=== PATIENT | female | born 1940 | race Caucasian/White ===

== ENCOUNTER 2017-01-02 13:24 | Outpatient (CLI) | payer MEDICARE, OTHER ==
[~2017-01-02] VITALS: Ht 160 cm; Wt 59.1 kg
[2017-01-02] MEDS ORDERED: CALTRATE 600 M600 M1 PO (14:09)
[2017-01-02] MEDS ORDERED: ALENDRONATE SOD70 MG PO (14:09)
[2017-01-02 14:13] VITALS: BP 128/70; Ht 160 cm; Wt 59.1 kg
== END 2017-01-02 14:29 ==
LOC: D.OPS 13:24
DX: M81.0 Age-related osteoporosis without current pathological fracture (principal)

== ENCOUNTER 2017-07-10 09:52 | Outpatient (CLI) | payer MEDICARE, OTHER ==
[~2017-07-10 09:52] MED LIST: ALENDRONATE SOD70 MG PO; CALTRATE 600 M600 M1 PO
[2017-07-10 10:50] VITALS: BP 159/84; BMI 23.9
== END 2017-07-10 10:55 | disposition home or self-care (01) ==
LOC: D.OPS 09:52
DX: M81.0 Age-related osteoporosis without current pathological fracture (principal)

== ENCOUNTER 2018-01-08 10:03 | Outpatient (CLI) | payer MEDICARE, OTHER ==
[~2018-01-08] VITALS: Ht 160 cm; Wt 66.8 kg
[2018-01-08 10:32] VITALS: BP 129/68; Ht 160 cm; Wt 66.8 kg
== END 2018-01-08 11:05 | disposition home or self-care (01) ==
LOC: D.OPS 10:03
DX: M81.0 Age-related osteoporosis without current pathological fracture (principal)

== ENCOUNTER 2018-07-16 11:28 | Outpatient (CLI) | payer MEDICARE, OTHER ==
[~2018-07-16] VITALS: Ht 160 cm; Wt 59.1 kg
[2018-07-16 12:44] VITALS: BP 131/65; Ht 160 cm; Wt 59.1 kg
== END 2018-07-16 12:49 | disposition home or self-care (01) ==
LOC: D.OPS 11:28
DX: M81.0 Age-related osteoporosis without current pathological fracture (principal); Z01.812 Encounter for preprocedural laboratory examination

== ENCOUNTER 2019-01-12 07:15 | Inpatient (IN) | payer MEDICARE, OTHER ==
--- NOTE | ~2019-01-12 | HEMODYNAMI ---
PATIENT:ZULMA MIRANDA MEDICAL RECORD: [id number] : 40 [facility] [id number] ADMISSION DATE: 01/12/19 Generatedon:01/13/20197:51 Patient name: ZULMA MIRANDA Patient #: [id number] SSN: : 1940 Date of study: 01/13/2019 Page: Of Hemodynamic Procedure Report Patient Data Patient Demographics Procedure consent was obtained First Name: ZULMA Gender: Female Last Name: RUTH : 1940 [facility] Initial: Marcelle Age: 78 year(s) Patient #: [id number] Race: Unknown Additional ID: [id number] Contact details [address]: [address] [place] [address] State: [place] City: [place] Zip code: [address] Past Medical History Allergies: No known allergies Admission Admission Data Admission Date: 01/12/2019 Admission Time: 8:51 Room #: D.2120 Height (in.): 62.99 BSA: 1.61 (m2) Height (cm.): 160 BMI: 23.05 (kg/m2) Weight (lbs.): 130.07 Weight (kg.): 59 Lab Results Lab Result Date: 01/13/2019 Lab Result Time: 0:00 Biochemistry Name Units Result Min Max BUN mg/dl 16 --(---*)-- 7 18 Creatinine mg/dl 1 --(--*-)-- 0.6 1.3 CBC Name Units Result Min Max Hemoglobin g/dl 14 --(*---)-- 13.5 17.5 Procedure Procedure Types Cath Procedure Diagnostic Procedure C [facility] w/Coronaries Sedation Charges Moderate Sedation up to 15 minutes PCI Procedure Coronary Stent Coronary Stent Initial Procedure Description Procedure Date Procedure Date: 01/13/2019 Procedure Start Time: 7:20 Procedure End Time: 7:49 Procedure Staff Name Function Rigoberto Munson MD Performing Physician Padmini Parsons RT Scrub Christopher Snow RT Monitor Kiera López RN Nurse Sameera Honeycutt RT Monitor Procedure Data Cath Procedure Fluoroscopy Diagnostic fluoroscopy Total fluoroscopy Time: 6.8 time: 6.8 min min Diagnostic fluoroscopy Total fluoroscopy dose: 502 dose: 502 mGy mGy Contrast Material Contrast Material Type Amount (ml) Isovue 300 94 Entry Location Entry Primary Successful Side Size Upsize Upsize Entry Closure Succes sful Closure Location (Fr) 1 (Fr) 2 (Fr) Remarks Device Remarks Femoral Right 5 Fr 6 Fr Exoseal artery Short Estimated blood loss: 5 ml Diagnostic catheters Device Type Used For End Catheter Placement MULTIPACK JL 4.0 5Fr Left Coronary catheter Angiography MULTIPACK 3DRC 5Fr Right Coronary catheter Angiography MULTIPACK Pigtail 5 Fr LV Angiography catheter Procedure Complications No complications Procedure Medications Medication Administration Route Dosage 0.9% NaCl I.V. 100 ml/hr Oxygen etCO2 Nasal cannula 2 l/min Lidocaine 2% added to field 20 Heparin Flush Bag added to field 2 bags (1000units/500ml NS) Versed I.V. 2 mg Fentanyl I.V. 50 mcg Fentanyl I.V. 50 mcg Heparin Bolus I.V. 6000 units Plavix P.O. 600 mg Hemodynamics Rest BSA: 1.61 (m2) HGB: 14 (g/dl) O2 Consumption: Estimated: 148.46 (ml/min) O2 Cons umption indexed: Estimated:92.21 (ml/min/m) Heart Rate: 75 (bpm) Pressure Samples Time Site Value (mmHg) Purpose Heart Use Rate(bpm) 7:26 LV 113/-6,1 Snapshot 68 7:27 LV 104/-4,4 Pullback 66 7:27 AO 109/53(74) Pullback 66 Gradients Valve Time Site 1 Site 2 Mean SEP/DFP Peak To Heart Use (mmHg) (sec/min) Peak Rate (mmHg) (bpm) Aortic 7:27 LV AO 0 6 0 66 104/-4,4 109/53(74) Calculations Valve P-P Mean Valve Index Valve Source Name Gradient Area Flow (cm2) Aortic 0 0 0 0 Snapshots Pre Cath Intra NCS Post Cath Vital Signs Time Heart Resp SPO2 etCO2 NIBP (mmHg) Rhythm Pain Sedation Rate (ipm) (%) (mmHg) Status Level (bpm) 7:14:05 76 21 100 33.6 119/70(95) NSR 0 (11) 10(A) , No pain 7:18:28 81 21 97 32.9 75/47(64) NSR 0 (11) 10(A) , No pain 7:22:35 65 15 98 17.2 112/60(85) NSR 0 (11) 10(A) , No pain 7:26:54 69 15 98 27.6 118/60(85) NSR 0 (11) 9(A) , No pain 7:31:12 70 17 98 29.1 103/58(85) NSR 0 (11) 9(A) , No pain 7:35:26 67 13 98 32.1 116/60(80) NSR 0 (11) 9(A) , No pain 7:39:42 69 14 99 32.2 114/70(85) NSR 0 (11) 9(A) , No pain 7:44:00 68 14 100 33.6 129/67(97) NSR 0 (11) 9(A) , No pain 7:48:18 67 17 100 34.4 130/74(109) NSR 0 (11) 10(A) , No pain Medications Time Medication Route Dose Verified Delivered Reason Notes Effectiveness by by 7:13:07 0.9% NaCl I.V. 100 Rigoberto Kiera used for ml/hr Arpit López finish patcher 7:13:13 Oxygen etCO2 2 Rigoberto Kiera used for Nasal l/min Arpit López procedure cannula RN 7:13:18 Lidocaine 2% added 20ml Rigoberto Rigoberto for local to vial Arpit Munson MD anesthetic field 7:13:23 Heparin Flush added 2 Rigoberto Rigoberto used for Bag to bags Arpit Munson MD procedure (1000units/500ml field NS) 7:19:08 Versed I.V. 2 mg Rigoberto Kiera for sedation Arpit López RN 7:19:18 Fentanyl I.V. 50 Rigoberto Kiera for sedation mcg Arpit López RN 7:24:28 Fentanyl I.V. 50 Rigoberto Kiera for sedation mcg Arpit López RN 7:32:22 Heparin Bolus I.V. 6000 Rigoberto Kiera for verifi ed units Arpit López anticoagulation with Dr. PAMELA Munson 7:47:33 Plavix P.O. 600 Rigoberto Kiera for mg Arpit López antiplatelet RN therapy Procedure Log Time Note 6:52:34 Signed procedure consent form obtained from patient. 6:52:35 Time tracking: Regular hours (M-F 7:00 - 5:00) 6:52:39 Plan of Care:Hemodynamics will remain stable., Cardiac rhythm will remain stable., Comfort level will be maintained., Respiratory function will remain adequate., Patient/ family verbilizes understanding of procedure., Procedure tolerated without complication., Recovers from procedure without complications.. 6:53:32 Diagnostic Cath status Urgent 6:53:43 Patient Weight : 130.07 lbs 6:53:52 Patient Height : 62.99 inches 6:56:19 Kiera López RN sent for patient. Start room use. 7:02:47 Patient received from PCU to CCL 1 Alert and oriented. Tansferred to table in Supine position. 7:02:48 Correct patient and procedure confirmed by team. 7:02:48 Warm blankets applied, and hardeep hugger turned on for patient comfort. 7:02:49 ECG and BP/O2 sat monitors applied to patient. 7:12:54 Vital chart was started 7:12:55 Baseline sample Acquired. 7:12:58 Rhythm: sinus rhythm 7:13:00 Full Disclosure recording started 7:13:07 0.9% NaCl 100 ml/hr I.V. was administered by Kiera López RN; used for procedure; 7:13:13 Oxygen 2 l/min etCO2 Nasal cannula was administered by Kiera López RN; used for procedure; 7:13:18 Lidocaine 2% 20ml vial added to field was administered by Rigoberto Munson MD; for local anesthetic; 7:13:23 Heparin Flush Bag (1000units/500ml NS) 2 bags added to field was administered by Rigoberto Munson MD; used for procedure; 7:15:16 H&P Date Dictated: 01/12/2019 Within 30 days and on chart.. 7:15:18 Pre-op teaching completed and patient verbalized understanding. 7:15:18 Pre-procedure instructions explained to patient. 7:15:20 Family in waiting room. 7:15:22 Patient NPO since Midnight. 7:15:29 Patient allergic to No known allergies 7:15:32 Is the patient allergic to Iodine/contrast media? No. 7:15:38 Is patient on blood thinner?No 7:15:40 Patient diabetic? No. 7:15:42 ----Pre-sedation anethsthesia assessment.---- 7:15:52 Previous problem with sedation/anesthesia? No ? 7:15:53 Snore? No 7:15:54 Sleep apnea? No 7:15:56 Deviated septum? No 7:16:01 Opens mouth fully? Yes 7:16:03 Sticks out tongue? Yes 7:16:07 Airway obstruction? No ? 7:16:09 Dentures? No ? 7:16:12 Pre procedure: right dorsailis pedis pulse 1+ Palpable, but thready & weak; easily obliterated 7:16:16 Modified Lefty's test Ulnar > 7 seconds. 7:16:18 Patient pain scale 0/10 ?. 7:16:25 IV patent on arrival in right antecubital with 0.9% NaCl at KVO. 7:17:13 Lab Result : Hemoglobin 14 g/dl 7:17:13 Lab Result : Creatinine 1 mg/dl 7:17:13 Lab Result : BUN 16 mg/dl 7:17:18 Lab results completed and on chart. 7:17:20 Right groin area was prepped with chlora-prep and draped in sterile fashion 7:17:21 Alarms reviewed by R. N. 7:17:22 Sharps counted by scrub and verified by R.N. 7:18:56 --------ALL STOP TIME OUT------ 7:18:56 Physician arrived 7:18:57 Final Timeout: patient, procedure, and site verified with staff and physician. All members of the team are in agreement. 7:19:03 Right groin site verified by team. 7:19:07 Maximum allowable Isovue 300 dose 300ml. Physician notified. (300ml for normal creatinines. For patients with creatinine of 1.7 or higher multiply weight(kg) x 5 divided by creatinine.) 7:19:08 Versed 2 mg I.V. was administered by Kiera López RN; for sedation; 7:19:11 Fire Safety Assessment: A--An alcohol-based skin anteseptic being used preoperatively., C--Open oxygen or nitrous oxide is being used., D--An ESU, laser, or fiber-optic light is being used. 7:19:15 Physical assessment completed. ASA score P 2 - A patient with mild systemic disease as per Rigoberto Munson MD. 7:19:18 Fentanyl 50 mcg I.V. was administered by Kiera López RN; for sedation; 7:19:28 Sedation plan: IV Moderate Sedation Medication:Versed, Fentanyl 7:19:41 Use device set Femoral Dx 7:19:42 Medline Cath Pack ([id number]) opened to sterile field. 7:19:42 Bag Decanter (2002S) opened to sterile field. 7:19:42 ACIST Syringe (41990) opened to sterile field. 7:19:43 DIAGNOSTIC WIRE .035 260cm J wire (339817) opened to sterile field. 7:19:46 ACIST Hand Control (92531) opened to sterile field. 7:19:47 DIAGNOSTIC Multipack 5Fr catheter set (PC9118) opened to sterile field. 7:19:47 ACIST Manifold (72279) opened to sterile field. 7:19:48 Tegaderm 4 x 4 (1626W) opened to sterile field. 7:19:49 SHEATH 5FR Hobbs (DML848) opened to sterile field. 7:19:56 Procedure started. 7:20:02 Local anesthetic to right femoral artery with Lidocaine 2% by Padmini Parsons RT(R).INITIAL ACCESS ONLY 7:20:12 A 5 Fr sheath was inserted into the Right Femoral artery 7:21:16 A MULTIPACK JL 4.0 5Fr catheter was advanced over the wire and used for Left Coronary Angiography. 7:21:19 LCA angiography performed. 7:21:22 Injector settings: Ml/sec: 3, Volume: 6, 7:23:10 Catheter removed. 7:24:28 Fentanyl 50 mcg I.V. was administered by Kiera López RN; for sedation; 7:24:28 A MULTIPACK 3DRC 5Fr catheter was advanced over the wire and used for Right Coronary Angiography. 7:24:32 RCA angiography performed. 7:24:35 Injector settings: Ml/sec: 3, Volume: 6, 7:25:03 Catheter removed. 7:25:10 A MULTIPACK Pigtail 5 Fr catheter was advanced over the wire and used for LV Angiography. 7:25:46 SHEATH 6FR Hobbs (VPX950) opened to sterile field. 7:25:47 BMW 300cm [place] 2 J wire ([id number]) opened to sterile field. 7::47 INFLATOR Merit BasixCompak (SS8039) opened to sterile field. 7:25:53 GUIDE 6FR XBLAD 3.5 catheter ([id number]) opened to sterile field. 7::42 LV hemodynamics recorded. 7::44 LV gram done using BANKS 7::46 Injector settings: Ml/sec: 5, Volume: 15, 7:27:10 EF : 35 % 7:29:25 Catheter removed. 7:29:27 Proceeding to intervention. 7::37 Sheath upsized to a 6 Fr Short. 7::44 6 Fr xblad 3.5 guide catheter was inserted over the wire 7:29:50 bmw wire advanced. 7:32:22 Heparin Bolus 6000 units I.V. was administered by Kiera López RN; for anticoagulation; verified with Dr. Munson 7:35:31 Wire advanced across lesion. 7:37:58 Inflate balloon Inflation number: 1 A EMERGE OTW 2.0 x 20 balloon ([id number]) was prepped and advanced across the Prox LAD, then inflated to 11 ARON for 0:10 (min:sec). 7:39:34 Balloon removed over the wire. 7:44:52 Place stent Inflation Number: 2 A INTEGRITY OTW 2.5 X 26 stent ([id number]) was prepped and advanced across the Prox LAD. The stent was deployed at 10 ARON for 0:10 (min:sec). 7:45:49 Stent catheter was removed intact over wire. 7:45:50 Wire removed. 7:45:51 Guide catheter removed. 7:46:00 EXOSEAL 6Fr (EX600) opened to sterile field. 7:46:11 Sheath removed intact; hemostasis achieved with Exoseal to the Right Femoral artery. 7:46:13 Procedure ended.(Physican Out) 7:46:26 Fluoroscopy time 06.80 minutes. 7:46:30 Fluoroscopy dose: 502 mGy 7:46:30 Flurop Dose total: 502 7:46:37 Contrast amount:Isovue 300 94ml. 7:46:39 Sharps counted by scrub and verified by R.N. 7:46:40 Insertion/operative site no bleeding no hematoma. 7:46:43 Post-op/insertion site Right Femoral artery dressed using a 4 x 4 and Tegaderm. 7:46:52 Post right femoral artery:stable 7:46:54 Post Procedure Pulses reassessed and unchanged 7:46:57 Post procedure rhythm: unchanged. 7:47:00 Estimated blood loss: 5 ml 7:47:29 Post procedure instruction explained to patient.Patient verbalizes understanding. 7:47:30 Patient needs reinforcement of post procedure teaching. 7:47:33 Plavix 600 mg P.O. was administered by Kiera López RN; for antiplatelet therapy; 7:48:51 Procedure type changed to Cath procedure, Diagnostic procedure, LHC, LHC w/Coronaries, Sedation Charges, Moderate Sedation up to 15 minutes, PCI procedure, Coronary Stent, Coronary Stent Initial 7:48:54 Procedure and supply charges have been captured, reviewed, submitted and are correct. 7:48:58 Procedure Complication : No complications 7:49:00 Vital chart was stopped 7:49:01 See physician's report for complete and final results. 7:49:14 Report given to [facility]. 7:49:17 Patient transfered to [facility] with Stretcher. 7:49:18 Full Disclosure recording stopped 7:49:18 Procedure ended. 7:49:27 ACC-PCI Only Patient was given prescriptions, or instructed by Rigoberto Munson MD to start/continue the following medications upon discharge: Plavix 7:49:29 End room use (Document Last) Intervention Summary Intervention Notes Time ActionType Lesion and Equipment Action# Pressure Duration Attributes Used 7:37:58 Inflate Prox LAD EMERGE OTW 1 11 00:10 balloon 2.0 x 20 balloon ([id number]) 7:44:52 Place stent Prox LAD INTEGRITY 2 10 00:10 OTW 2.5 X 26 stent ([id number]) Device Usage Item Name Manufacture Quantity Catalog Number Hospital Part Current Min imal Lot# / Charge Number Stock Stock Serial# Code ACIST Acist 1 02007 441324 819160 857315 20 Syringe Medical (34588) Systems Inc Bag Decanter Microtek 1 242771 61352 671017 5 () Medical Inc. Medline Cath Medline 1 [id number] 731084 04068 159783 5 Pack ([id number]) DIAGNOSTIC [facility] [place] 1 061723 870205 114782 185582 30 WIRE .035 260cm J wire (358409) ACIST Hand Acist 1 22592 039656 366020 791907 5 Control Medical (89611) Systems Inc ACIST Acist 1 52243 453954 185333 402363 5 Manifold Medical (72545) Systems Inc DIAGNOSTIC Cardinal 1 DC5792 058095 21351 784767 30 Multipack Health 5Fr catheter set (SQ9617) Tegaderm 4 x 3M 1 1626W 356851 065974 119106 5 4 (1626W) SHEATH 5FR Terumo 1 EFW506 691227 462941 627700 5 Hobbs (OLJ332) MULTIPACK JL Cardinal 1 089538 5 4.0 5Fr Health catheter MULTIPACK Cardinal 1 275200 5 3DRC 5Fr Health catheter MULTIPACK Cardinal 1 480592 5 Pigtail 5 Fr Health catheter SHEATH 6FR Terumo 1 SGZ098 914359 950862 267070 40 Hobbs (CDK972) INFLATOR Merit 1 KB1223 091771 445321 966118 15 [facility] BasixCompak (IM4509) BMW 300cm Ivory 1 [id number] 608320 519520 884819 5 [place] 2 Vascular J wire ([id number]) GUIDE 6FR Cardinal 1 [id number] 668803 921700 714653 10 XBLAD 3.5 Health catheter (21498029) EMERGE OTW [place] 1 [id number] 256758 496258 305124 5 [id number] 2.0 x 20 Scientific balloon ([id number]) INTEGRITY Medtronic 1 [id number] 571341 222911 950121 2 [id number] OTW 2.5 X 26 stent ([id number]) EXOSEAL 6Fr Cardinal 1 EX600 609045 966981 023093 10 (EX600) Health Signature Audit [place] Stage Time Signature Unsigned Intra-Procedure 01/13/2019 Sameera Honeycutt 7:51:49 AM RT(R) Signatures Monitor : Christopher Snow RT Signature : Date : Time : Monitor : Sameera Yinka RT Signature : Date : Time : [place] [address] [place] [address]
[2019-01-12 07:40] LABS: BASOPHILS 0.2 % (0-2); EOSINOPHILS 1.3 % (0-7); HEMATOCRIT 41.5 % (36.0-48.0); IMMATURE GRANULOCYTES 0.1 % (0-5); LYMPHOCYTES 11.8 % (15-50); MCH 31.9 pg (26.0-34.0); MCHC 33.7 g/dL (31.0-37.0); MCV 94.5 fL (80.0-100.0); MEAN PLATELET VOLUME 10.7 fL (7.4-10.4); MONOCYTES 3.2 % (2-11); NEUTROPHILS 83.4 % (40-80); PLATELET COUNT 205 10x3/uL (130-400); RBC 4.39 10x6/uL (4.00-5.40); RDW 13.3 % (11.5-14.5); WBC 9.3 10x3/uL (4.8-10.8)
[2019-01-12 07:51] LABS: APTT 24.7 SECONDS (22.8-39.4); INR 0.95 (0.85-1.17); PROTIME 12.2 SECONDS (11.6-15.0)
[2019-01-12 07:58] VITALS: BP 136/80
[2019-01-12 07:59] LABS: ALBUMIN 3.8 g/dL (3.4-5.0); ALKALINE PHOSPHATASE 49 U/L (46-116); ALT (SGPT) 29 U/L (10-68); BILIRUBIN - TOTAL 0.36 mg/dL (0.2-1.3); CALC OSMOLALITY 280 mosm/kg (275-300); CALCIUM 9.5 mg/dL (8.5-10.1); CHLORIDE - SERUM 103 mmol/L (98-107); GLUCOSE 128 mg/dL (74-106); POTASSIUM - SERUM 3.9 mmol/L (3.5-5.1); PROTEIN - SERUM 7.3 g/dL (6.4-8.2); SODIUM 139 mmol/L (136-145); UREA NITROGEN 16 mg/dL (7-18); eGFR NON AFRICAN AMERICAN 57 mL/min (90-120)
[2019-01-12 08:13] LABS: CKMB 2.4 U/L (0.0-3.6); CREATINE KINASE 62 UL (21-215); MAGNESIUM - SERUM 1.9 mg/dL (1.8-2.4)
[2019-01-12 08:25] VITALS: BP 135/84
--- NOTE | 2019-01-12 08:25 | NUR ---
REPORTS FROM LAB. ELEVATED TROP 0.240. DR MOLINA NOTIFIED
[2019-01-12 09:39] LABS: ANION GAP 12.3 mmol/L (8-16); CALCIUM 9.4 mg/dL (8.5-10.1); CARBON DIOXIDE 27.8 mmol/L (21.0-32.0); POTASSIUM - SERUM 4.1 mmol/L (3.5-5.1)
--- NOTE | 2019-01-12 09:47 | NUR ---
PT ARRIVED FROM ER ALERT AND ORIENTED X4 BY WHEELCHAIR. PT VITALS STABLE AND COMPLAINS OF NO PAIN AT THIS TIME. PT EXPRESSES MILD ANXIETY FROM BEING IN HOSPITAL. PT STATES, "I HAVN'T BEEN IN THE HOSPITAL SINCE MY CHILDREN WERE BORN." BED LOW CALL LIGHT WITHIN REACH. WILL CONTINUE TO MONITOR.
[2019-01-12] MEDS ORDERED: PROLIA INJ 660 MG/M1 IJ (10:03)
[2019-01-12 10:43] VITALS: BP 119/69
[2019-01-12 12:07] VITALS: BP 119/69; BMI 23.0
[2019-01-12 12:22] LABS: CKMB 38.7 U/L (0.0-3.6)
[2019-01-12 12:23] LABS: CREATINE KINASE 285 UL (21-215); TROPONIN-I 5.282 ng/mL (0.000-0.060)
--- NOTE | 2019-01-12 12:58 | NUR ---
PAGED DR. HELTON CONCERNING PT TRIPONIN. ORDERED ANOTHER DOSE OF LOVANOX. VITALS STABLE WILL CONTINUE TO MONITOR.
[2019-01-12 19:04] LABS: CKMB 86.5 U/L (0.0-3.6); CREATINE KINASE 598 UL (21-215)
[2019-01-12 19:07] LABS: TROPONIN-I 18.553 ng/mL (0.000-0.060)
[2019-01-12 20:07] VITALS: BP 148/79
--- NOTE | 2019-01-12 20:31 | NUR ---
REPORT RECIEVED AND INITIAL ROUNDS RECIEVED. LAB CALLED ELEVATED CRITICAL TROPONIN OF 18.5. PT ALERT/ORIENTED AND RESTING IN BED. 66/SR WITH PACS. STATES SMALL AMOUNT OF CHEST TIGHTNESS. NITRO PASTE IN PLACE TO CHEST WALL. STARTED O2 @ 2L/NC. MONITOR AND CPOC. PAGE TO DR HELTON AND REPORTED CRITICAL TROPONIN INCREASE. ORDERS TO CONTINUE TO MONITOR AND MOVE HER TO 1ST FOR HEART CATH IN AM.
[2019-01-12 23:49] VITALS: BP 124/81
[2019-01-13 03:00] LABS: CKMB 30.1 U/L (0.0-3.6); CREATINE KINASE 58 UL (21-215)
[2019-01-13 03:02] LABS: TROPONIN-I 3.601 ng/mL (0.000-0.060)
[2019-01-13 04:23] VITALS: BP 128/76
--- NOTE | 2019-01-13 08:08 | NUR ---
BACK FROM PEDIATRIC PATHOLOGIST. V/S STABLE.RIGHT GROIN SOFT WITH DRSG DRY AND INTACT.RIGHT AC WITH NS AT 100. PPP. TELEMERTY SHOWS SR64
--- NOTE | 2019-01-13 10:05 | NUR ---
PT LYING QUIETLY WITH EYES CLOSED. V/S STABLE. RIGHT GROIN SOFT WITH DRSG DRY AND INTACT. PPP. TELEMERTY SHOWS SR. FAMILY AT BEDSIDE
[2019-01-13 11:57] VITALS: BP 104/59
--- NOTE | 2019-01-13 12:24 | NUR ---
PRE OPED FOR CATH. PT REFUSES TO TAKE OFF JEWERLY UNTILL SON GETS HERE
--- NOTE | 2019-01-13 12:40 | NUR ---
PT UP TO BATHROOM. CATH SITE SOFT WITH DRSG DRY AND INTACT . WILL MONITOR
--- NOTE | 2019-01-13 12:43 | NUR ---
I have reviewed this patient and I concur with the Shift Assessment completed by the Licensed Practical Nurse today this shift.
[2019-01-13 15:44] VITALS: BP 106/61
--- NOTE | 2019-01-13 18:10 | NUR ---
LYING QUIETLY WITH EYES CLOSED. TELEMERTY SHOWS SR. DRSG TO GROING DRY AND INNTACT. GROIN SOFT
--- NOTE | 2019-01-13 19:26 | NUR ---
ASSESSMENT COMPLETE, PT A&O. RESPERATIONS EVEN ON RA. DRSG TO RIGHT GROIN C/D/I. NO SWELLING, BLEEDING OR HEMATOMA NOTED. RIGHT LEG WARM TO TOUCH, PEDAL PULSES PRESENT. PT DENIES PAIN OR NEEDS, BED LOW, CL IN REACH.
--- NOTE | 2019-01-13 20:18 | NUR ---
IV TO RIGHT AC SWOLLEN. IV CATH REMOVED AT PT REQUEST, TIP INTACT. COVERED WITH 2X2 AND TAPE. PT DENIES ANY NEEDS, BED LOW, CL IN REACH.
[2019-01-13 21:25] VITALS: BP 107/59
[2019-01-14 01:56] VITALS: BP 116/63
--- NOTE | 2019-01-14 05:03 | NUR ---
I have reviewed this patient and I concur with the Shift Assessment completed by the Licensed Practical Nurse today this shift.
[2019-01-14 06:23] VITALS: BP 115/66
--- NOTE | 2019-01-14 07:15 | NUR ---
ASSESSMENT COMPLETED. ALERT AND ORIENTED. TELEMERTY SHOWS SR 74. RIGHT GROIN SOFT WITH DRSG DRY AND INTACT.UP AB THU. DENIES ANY NEEDS. SR UP WITH CALL LIGHT IN REACH
[2019-01-14 08:00] VITALS: BP 116/46
[2019-01-14 12:00] VITALS: BP 104/69
--- NOTE | 2019-01-14 13:19 | NUR ---
I have reviewed this patient and I concur with the Shift Assessment completed by the Licensed Practical Nurse today this shift.
[2019-01-14] MEDS ORDERED: COREG 3.1253.125 MG PO (16:28)
[2019-01-14] MEDS ORDERED: PLAVIX75 MG PO (16:28)
[2019-01-14] MEDS ORDERED: ASPIRIN81 MG PO (16:29)
[2019-01-14 16:37] VITALS: BP 119/52
--- NOTE | 2019-01-14 16:40 | NUR ---
PER PATIENT REQUEST I CALLED [facility] BY KEN NARANJO. COREG3.125 MG #60 TAKE ONE TWICE DAILY WITH MEALS WITH 6 REFILLS AND PLAVIX 75 MG #30 WITH 1 REFILL ALONG WITH 81 MG ASA #30 WITH 6 REFILLS.
--- NOTE | 2019-01-14 17:10 | MORECARE ---
CASE MANAGEMENT DISCHARGE SUMMARY PATIENT: ZULMA MIRANDA UNIT: [id number] ADM DATE: 01/13/19 AGE: 78 : 40 SEX: F ROOM/BED: D.1629 AUTHOR: CATARINO,DOC PHYSICIAN: REFERRING PHYSICIAN: OLLIE HELTON M.D. DATE OF SERVICE: 01/14/19 Discharge Plan Patient Name: ZULMA MIRANDA Facility: [facility]:[place] : 1940 Planned Disposition: Home Anticipated Discharge Date: 01/14/19 Discharge Date: Expected LOS: 1 Initial Reviewer: [email or web address] Initial Review Date: 01/14/2019 Generated: 01/14/19 6:10 pm Comments DCP- Discharge Planning Updated by [email or web address]: William Figueroa on 01/14/19 4:[address] Patient Name: ZULMA MIRANDA Admission Status: ER Accout number: [id number] Admission Date: 01-13-2019 : 1940 Admission Diagnosis: Attending: OLLIE HELTON Current LOS: 1 Anticipated DC Date: 01-14-2019 Planned Disposition: Home Primary Insurance: MEDICARE A & B Discharge Planning Comments: CM MET WITH PT IN ROOM TO DISCUSS DISCHARGE PLANNING AND NEEDS. PT REPORTS LIVING AT HOME INDEPENDENTLY WITH SPOUSE. PT HAS NO MEDICAL EQUIPMENT AND NO OUTSIDE SERVICES ASSISTING IN THE HOME. CM DISCUSSED AVAILABILITY OF HOME HEALTH, REHAB SERVICES AND MEDICAL EQUIPMENT. PT DENIES DISCHARGE NEEDS, REPORTS HER SPOUSE IS HERE TO PICK HER UP FOR DISCHARGE HOME. FLOW COODINATOR NURSE NOTIFIED. Crop Nutrition Scientist: William Figueroa DCPIA - Discharge Planning Initial Assessment Updated by [email or web address]: William Figueroa on 01/14/19 5:04 pm * Is the patient Alert and Oriented? Yes * How many steps to enter\exit or inside your home? NONE * PCP DR. COLEMAN * Pharmacy [facility] * Preadmission Environment Home with Family * ADLs Independent * Equipment None * Other Equipment NO MEDICAL EQUIPMENT PROVIDER PREFERENCE * List name and contact numbers for known caregivers / representatives who currently or will assist patient after discharge: PEPE MIRANDA, SPOUSE, * Verbal permission to speak to the caregivers and representatives has been obtained from the patient. Yes * Community resources currently utilized None * Please name any agencies selected above. NONE * Additional services required to return to the preadmission environment? No * Can the patient safely return to the preadmission environment? Yes * Has this patient been hospitalized within the prior 30 days at any hospital? No Patient Name: ZULMA MIRANDA Page [phone] at 1710 All edits/amendments must be made on the electronic document DICTATION DATE: 01/14/191709 MOPHEAD SEWER: JESSICA 01/14/191709 RPT#: [id number] DC DATE: STATUS: ADM IN [facility] [address] [place] [address] END OF REPORT
--- NOTE | 2019-01-14 18:00 | NUR ---
PT DCD. IV DCD WITH TIP INTACT. TO PRIVATE CAR PER WHEEL CHAIR
== END 2019-01-14 18:03 | disposition home or self-care (01) | DRG 249 ==
LOC: D.ER 07:15 → D.M2 08:51 → OBSVTIME 08:51 → D.M2 01-13 15:57
PROVIDERS: Emergency Medicine; ADMIT Internal Medicine Cardiovascular Disease; ATTEND Internal Medicine Cardiovascular Disease
PROC: B2111ZZ Fluoroscopy of Multiple Coronary Arteries using Low Osmolar Contrast (ICD-10-PCS; 2019-01-13)
PROC: B2151ZZ Fluoroscopy of Left Heart using Low Osmolar Contrast (ICD-10-PCS; 2019-01-13)
PROC: 02703DZ Dilation of Coronary Artery, One Artery with Intraluminal Device, Percutaneous Approach (ICD-10-PCS; principal; 2019-01-13 06:56)
PROC: 4A023N7 Measurement of Cardiac Sampling and Pressure, Left Heart, Percutaneous Approach (ICD-10-PCS; 2019-01-13 06:56)
DX: I21.4 Non-ST elevation (NSTEMI) myocardial infarction (principal); I25.110 Atherosclerotic heart disease of native coronary artery with unstable angina pectoris

== ENCOUNTER 2019-01-21 13:34 | Outpatient (CLI) | payer MEDICARE, OTHER ==
[~2019-01-21] VITALS: Ht 160 cm; Wt 61.4 kg
[~2019-01-21 13:34] MED LIST changes: +ASPIRIN81 MG PO; +COREG 3.1253.125 MG PO; +PLAVIX75 MG PO; +PROLIA INJ 660 MG/M1 IJ
[2019-01-21 13:47] VITALS: BP 129/57; Ht 160 cm; Wt 61.4 kg
--- NOTE | 2019-01-21 13:53 | NUR ---
PT LEFT UNIT AMBULATING AT 1351 . PT RECEIVED DC INSTRUCTIONS. STATES UNDERSTANDING.
== END 2019-01-21 13:51 | disposition home or self-care (01) ==
LOC: D.OPS 13:34
PROVIDERS: ATTEND Family Medicine
DX: M81.0 Age-related osteoporosis without current pathological fracture (principal)

== ENCOUNTER → 2019-05-06 17:17 | Outpatient (CLI) | payer MEDICARE, OTHER ==
[2019-01-21 13:47] VITALS: BMI 23.9
[2019-05-06 17:56] LABS: LDL-HDL RATIO 0.8 ratio (1.5-3.5)
== END | disposition home or self-care (01) ==
LOC: D.LABREF 17:17
PROVIDERS: ATTEND Internal Medicine Cardiovascular Disease
DX: I25.10 Atherosclerotic heart disease of native coronary artery without angina pectoris (principal)

== ENCOUNTER → 2019-05-15 09:28 | Outpatient (CLI) | payer MEDICARE, OTHER ==
[2019-01-21 13:47] VITALS: BMI 23.9
== END | disposition home or self-care (01) ==
LOC: D.HCCECHO 09:28 → D.HCCARDIO 09:30 → D.HCCECHO 09:30
PROVIDERS: ATTEND Internal Medicine Cardiovascular Disease
DX: I25.10 Atherosclerotic heart disease of native coronary artery without angina pectoris (principal)

== ENCOUNTER 2019-07-17 12:29 | Outpatient (CLI) | payer MEDICARE, OTHER ==
[~2019-07-17] VITALS: Ht 160 cm; Wt 61.4 kg
[2019-07-17 12:51] VITALS: BP 135/89; Ht 160 cm; Wt 61.4 kg
--- NOTE | 2019-07-17 13:00 | NUR ---
PT TOLERATED PROLIA SHOT WELL. PT DC INSTRUCTIONS REVIEWED AT THIS TIME, PT VERBALIZED UNDERTANDING.
--- NOTE | 2019-07-17 13:07 | NUR ---
PT LEAVING OPS AT THIS TIME.
--- NOTE | 2019-07-17 13:15 | NUR ---
PT LEAVING OPS AT THIS TIME. NAD NOTED.
== END 2019-07-17 13:15 | disposition home or self-care (01) ==
LOC: D.OPS 12:29
PROVIDERS: ATTEND Family Medicine
DX: M81.0 Age-related osteoporosis without current pathological fracture (principal)

== ENCOUNTER 2020-02-10 13:41 | Outpatient (CLI) | payer MEDICARE, OTHER ==
[~2020-02-10] VITALS: Ht 160 cm; Wt 61.4 kg
[2020-02-10 13:53] VITALS: BP 144/76; Ht 160 cm; Wt 61.4 kg
== END 2020-02-10 13:59 | disposition home or self-care (01) ==
LOC: D.OPS 13:41
PROVIDERS: ATTEND Family Medicine
DX: M81.0 Age-related osteoporosis without current pathological fracture (principal)

== ENCOUNTER 2021-02-16 13:30 | Outpatient (CLI) | payer MEDICARE, OTHER ==
[~2021-02-16] VITALS: Ht 160 cm; Wt 63.6 kg
[2021-02-16 14:00] VITALS: BP 141/73; Ht 160 cm; Wt 63.6 kg
== END 2021-02-16 13:58 | disposition home or self-care (01) ==
LOC: D.OPS 13:30
PROVIDERS: ATTEND Family Medicine
DX: M81.0 Age-related osteoporosis without current pathological fracture (principal)